=== PATIENT | male | born 1945 | race Caucasian/White ===

== ENCOUNTER → 2018-06-19 12:23 | Outpatient (CLI) | payer MEDICARE, OTHER, SELFPAY ==
[2018-06-19 12:35] LABS: Basophils # 0.1 K/mm3 (0-0.2); Basophils % 0.8 % (0.1-2.0); Eosinophils # 0.2 K/mm3 (0.0-0.4); Eosinophils % 1.8 % (0.1-12.0); Hematocrit 43.4 % (42.0-52.0); Hemoglobin 13.4 g/dL (14.1-18.0); Lymphocytes % 20.7 % (10-50); Mean Corpuscular HGB Conc 30.9 g/dL (31.8-35.4); Mean Corpuscular Volume 80.8 fl (80-94); Mean Platelet Volume 8.2 fl (7.4-10.4); Monocytes # 0.4 K/mm3 (0.1-1.0); Monocytes % 4.3 % (1.7-9.3); Neutrophils # 6.9 K/mm3 (1.8-7.8); Neutrophils % 72.3 % (37.0-80.0); Platelet Count 293 K/mm3 (142-424); Red Blood Count 5.37 M/mm3 (4.60-6.20); Red Cell Distribution Width 15.9 % (11.5-17.5); White Blood Count 9.5 K/mm3 (4.8-10.8)
[2018-06-19 13:41] LABS: Anion Gap 16.9 mEq/L (5-15); Blood Urea Nitrogen 20 mg/dL (7-18); Calcium 8.5 mg/dL (8.5-10.1); Carbon Dioxide 26 mmol/L (21.0-32.0); Chloride 99 mmol/L (98-107); Creatinine,Serum 1.71 mg/dL (0.70-1.30); Estimated Glomerular Filt Rate 40 ml/min (>60); GFR (African American) 48 ML/MIN (>60); Glucose 260 mg/dL (74-106); Potassium 3.9 mmoL/L (3.5-5.1); Sodium 138 mmol/L (136-145)
== END ==
PROVIDERS: Visit Provider Internal Medicine
DX: E11.9 Type 2 diabetes mellitus without complications (principal); E78.5 Hyperlipidemia, unspecified; I11.0 Hypertensive heart disease with heart failure; I25.10 Atherosclerotic heart disease of native coronary artery without angina pectoris; I48.91 Unspecified atrial fibrillation; I65.23 Occlusion and stenosis of bilateral carotid arteries; Z79.01 Long term (current) use of anticoagulants; Z95.810 Presence of automatic (implantable) cardiac defibrillator; I50.30 Unspecified diastolic (congestive) heart failure; Z79.4 Long term (current) use of insulin
CPT/HCPCS: 36415; 80048; 85025

== ENCOUNTER → 2019-11-11 10:18 | Outpatient (CLI) | payer MEDICARE, OTHER, SELFPAY ==
--- NOTE | 2019-11-11 10:19 | CA_ITS ---
APPROVED REPORT EXAM: Comprehensive 2D, Doppler, and color-flow Echocardiogram Ring Packer: Kaylee Rosenthal RVT Ht: 5 ft 7 in Wt: 255lbs BSA: 2.24 BP: 152/83 mmHg Indications: HEART FAILURE,HLD,HTN, STENTS,PACER,A-FIB,SOA,PALPS,DM TDS-PT SIZE 2D Dimensions LVOT 1.98 cm (M/F) 1.5-2.5 M-Mode Dimensions RVDd 2.86 cm (0.9-2.6) LVDd 5.10 cm (3.5-5.7) LVDs 3.71 cm (3.5-5.7) IVSd 1.07 cm (0.6-1.1) PWd 0.85 cm (0.6-1.1) EF (Teich) 52.70% FS 27.30% EDV (Teich) 123.80 mL ESV (Teich) 58.50 mL LV Diastology E/A Ratio 3.17 Mitral Valve MV A Velocity 21.00 (40-130 cm/s) Left Ventricle Technically difficult study because of the patient fact in poor acoustic windows Left atrium is mildly enlarged, left ventricle is normal size, mild concentric left ventricular hypertrophy, visually estimated ejection fraction 50%, there is no obvious regional wall motion abnormality, endocardial surfaces are very poorly visualized, repeat study with Definity contrast is recommended. Diastolic parameters are inconclusive. Right Ventricle Right atrium and right ventricle mildly enlarged with normal contractility, historically patient has a pacemaker, leads are not well visualized. Aortic Valve Aortic valve is thickened and calcified leaflet chordae display good mobility, there is no aortic stenosis or aortic insufficiency. Mitral Valve Mitral valve is minimally thickened, there is mild mitral regurgitation. Tricuspid Valve Tricuspid valve is grossly normal, there is mild tricuspid regurgitation. Pulmonic Valve Pulmonic valve is poorly visualized. Great Vessels Aortic root is normal size. Pericardium No significant pericardial effusion noted. Conclusion 1. Technically very difficult study because of the patient factors and poor acoustic windows, repeat study with Definity contrast is recommended. Normal left ventricular size, mild concentric left ventricular hypertrophy, visually estimated ejection fraction approximately 50% with no obvious regional wall motion abnormality, endocardial sounds are very poorly visualized. Diastolic parameters are inconclusive. 2. Thickened and calcified aortic valve without aortic stenosis aortic insufficiency 3. Mild mitral and tricuspid regurgitation. 4. No significant pericardial effusion noted. Electronically signed by : Jose Cormier, 11/11/2019 22:59:35
== END ==
PROVIDERS: PCP Family Medicine; Visit Provider Urology
DX: I11.0 Hypertensive heart disease with heart failure (principal); I48.91 Unspecified atrial fibrillation; R00.1 Bradycardia, unspecified; R06.02 Shortness of breath
CPT/HCPCS: 36415; 80048; 80061; 80076; 83880; 84439; 84443; 85025; 93306

== ENCOUNTER → 2019-11-11 12:25 | Outpatient (CLI) | payer MEDICARE, OTHER, SELFPAY ==
[2019-11-11 12:59] LABS: Basophils # 0.1 K/mm3 (0-0.2); Basophils % 0.8 % (0.1-2.0); Eosinophils # 0.4 K/mm3 (0.0-0.4); Eosinophils % 5.1 % (0.1-12.0); Hematocrit 40.8 % (42.0-52.0); Hemoglobin 13.4 g/dL (14.1-18.0); Lymphocytes % 23.4 % (10-50); Mean Corpuscular HGB Conc 32.9 g/dL (31.8-35.4); Mean Corpuscular Hemoglobin 27.6 pg (27.0-31.2); Mean Corpuscular Volume 83.7 fl (80-94); Mean Platelet Volume 8.2 fl (7.4-10.4); Monocytes # 0.4 K/mm3 (0.1-1.0); Monocytes % 4.2 % (1.7-9.3); Neutrophils # 5.8 K/mm3 (1.8-7.8); Neutrophils % 66.6 % (37.0-80.0); Platelet Count 270 K/mm3 (142-424); Red Blood Count 4.87 M/mm3 (4.60-6.20); Red Cell Distribution Width 15.9 % (11.5-17.5); White Blood Count 8.6 K/mm3 (4.8-10.8)
[2019-11-11 14:41] LABS: Alanine Aminotransferase 21 U/L (12-78); Albumin Level 4.4 g/dl (3.5-5.0); Alkaline Phosphatase 113 U/L (38-126); Anion Gap 16.2 mEq/L (5-15); Aspartate Amino Transferase 21 U/L (17-59); Bilirubin,Direct 0.1 mg/dl (0.0-0.4); Bilirubin,Indirect 0.4 mg/dL (0.0-0.9); Bilirubin,Total 0.5 mg/dl (0.2-1.3); Bilirubin,Unconjugated 0.4 mg/dL (0.0-1.1); Blood Urea Nitrogen 31 mg/dl (9-20); Calcium 9.4 mg/dl (8.4-10.2); Carbon Dioxide 30 mmol/L (22.0-30.0); Chloride 98 mmol/L (98-107); Chol/HDL Ratio 3.1 (1-3.5); Cholesterol 156 mg/dl (140-200); Estimated Glomerular Filt Rate 46 ml/min (>60); GFR (African American) 56 ML/MIN (>60); Glucose 259 mg/dl (74-100); HDL Cholesterol 50 mg/dl (40-60); Potassium 5.2 mmoL/L (3.5-5.1); Sodium 139 mmol/L (136-145); Total Protein,Serum 7.3 g/dl (6.3-8.2); Triglycerides 155 mg/dl (30-150); VLDL Cholesterol 31 mg/dL (0-40)
[2019-11-11 14:50] LABS: NT Pro Brain Natriuretic Pep. 1320 pg/mL (0-125)
[2019-11-11 14:52] LABS: Direct LDL Cholesterol 106.02 mg/dL (100-129)
[2019-11-11 15:01] LABS: Free T4 (Free Thyroxine) 1.13 ng/dl (0.78-2.19)
[2019-11-11 15:12] LABS: Thyroid Stimulating Hormone 5.46 uIU/mL (0.465-4.68)
== END ==
PROVIDERS: Visit Provider Internal Medicine
DX: E78.5 Hyperlipidemia, unspecified (principal); I11.0 Hypertensive heart disease with heart failure; I25.10 Atherosclerotic heart disease of native coronary artery without angina pectoris; I48.91 Unspecified atrial fibrillation; I65.29 Occlusion and stenosis of unspecified carotid artery; Z79.01 Long term (current) use of anticoagulants; Z95.0 Presence of cardiac pacemaker; Z98.890 Other specified postprocedural states; R06.00 Dyspnea, unspecified
CPT/HCPCS: 36415; 80048; 80061; 80076; 83880; 84439; 84443; 85025

== ENCOUNTER → 2019-11-19 06:51 | Outpatient (CLI) | payer MEDICARE, OTHER, MEDICAID, SELFPAY ==
--- NOTE | 2019-11-19 06:53 | NM_ITS ---
APPROVED REPORT Exam: Nuclear Stress Test Indication: Chest pain, SOB, CAD, Fatigue, Pacemaker, HTN, DM, High cholesterol, Former tobacco use, Family history Patient Location: Outpatient Stress Tech: Camilla Daniel [place] Tech:Melissa Jiang, ARRT, RT (R)(N) Ht: 5 ft 7 in Wt: 250 lbs HR: 81 bpm BP: 157/70 mmHg BSA: 2.22 m2 BMI: 39.1 History: Chest pain, SOB, CAD, Fatigue, Pacemaker, HTN, DM, High cholesterol, Former tobacco use, Family history Procedure: Patient received a 0.4 mg of intravenous Lexiscan, resting heart rate 81 bpm, resting blood pressure 157/70 mmHg, with Lexiscan maximum heart rate achived was 80 bpm which is % of the maximum predicted heart rate and blood pressure was 154/62 mmHg. With Lexiscan, patient denied any complaint of chest pain. Cardiac Stress and Resting SPECT Images: Cardiac Stress and Resting SPECT images were obtained using technetium 99m Myoview 31.9 mCi stress and 10.50 mCi at rest. The ejection fraction is low at 49% with global hypokinesia. No fixed or reversible defects Conclusion: Low ejection fraction with global hypokinesia. No evidence of ischemia or infarction Electronically signed by : Eliazar Patricio MD 11/21/2019 14:44:08
--- NOTE | 2019-11-19 06:53 | CA_ITS ---
APPROVED REPORT Exam: Pharmacologic Technologist: Camilla Sanchez, Ht: 5 ft 7 in Wt: 250 lbs BSA: 2.22 m2 HR: 81 bpm BP: 157/70 mmHg Rhythm: VENTRICULAR PACED RHYTHM Indications: Dyspnea, CAD Medical History Medical History: HTN, Hyperlipidemia, Diabetic ??? Insulin, Smoking Medications: Levothyroxine,,,,, Lovastatin,,,,, Losartan,,,,, Pantoprazole,,,,, Carvedilol,,,,, INSULIN,,,,, Tramadol,,,,, CloPIdogrel,,,,, TorSEMIDE,,,,, DOcusate,,,,, Sitagliptin,,,,, RIvaROXABAN,,,,, Cardiac Risk Factors: HTN, Hyperlipidemia, Diabetes (insulin), FHX of CAD, Smoking Stress Test Details Test: LEXISCAN HR Resting HR: 83 bpm Max Heart Rate (APMHR): 147 bpm Max HR Achieved: 90 bpm Target HR (85% APMHR): 124 bpm % of APMHR: 61 Recovery HR: 80 bpm BP Resting BP: 157.0/70.0 mmHg Max BP: 157.0/70.0 mmHg Recovery BP: 141.0/61.0 mmHg ECG Resting ECG: VENTRICULAR PACED RHYTHM Clinical Exercise duration: 04:07 min Highest Stage Achieved: Stress ECG Conclusion DURING LEXISCAN INFUSION PATIENT HAD MILD MALAISE AND SOA. NO CHEST PAIN. OCCASIONAL TUNTUTULIAK BEAT. NO SIGNIFICANT ST-T CHANGES. NON-DIAGNOSTIC LEXISCAN STRESS. MYOVIEW IMAGES REPORTED SEPARATELY. Electronically signed by : John Randolph, 11/21/2019 11:28:54
--- NOTE | 2019-11-19 07:26 | HMH.ITSHM ---
Current Home Medications as stated by this patient Shai Beltran or agency service representative. []TRAMADOL TORSEMIDE SITAGLIPTIN RIVAROXABAN PANTOPRAZOLE CARVEDILOL NITRO LOVASTATIN LOSARTAN LEVOTHYROXINE INSULIN DOCUSATE CLOPIDOGREL
== END ==
PROVIDERS: PCP Family Medicine; Visit Provider Internal Medicine
DX: E78.5 Hyperlipidemia, unspecified (principal); I11.0 Hypertensive heart disease with heart failure; I25.10 Atherosclerotic heart disease of native coronary artery without angina pectoris; I48.91 Unspecified atrial fibrillation; I65.29 Occlusion and stenosis of unspecified carotid artery; Z79.01 Long term (current) use of anticoagulants; Z95.0 Presence of cardiac pacemaker; Z98.890 Other specified postprocedural states
CPT/HCPCS: 78452; 93017; A9502; J2785

== ENCOUNTER 2019-11-25 08:08 | Day surgery (SDC) | payer MEDICARE, OTHER, MEDICAID, SELFPAY ==
[2019-11-25] VITALS (41 sets, daily range): BP systolic 112–216; BP diastolic 40–105; PULSE 69–86; RESP 15–20; TEMP 36.9–37.3; O2SAT 92–100; BMI 40.2
--- NOTE | 2019-11-25 | IR_ITS ---
APPROVED REPORT Patient Location: Outpatient Supervisor Delivery Department: BALA Keating RT (R) PROCEDURES Left heart catheterization Left ventriculogram Selective coronary angiogram Drug-eluting stent deployment to the distal right coronary artery INDICATION Angina pectoris, Abnormal Myoview, Known coronary artery disease, Informed consent was obtained prior to the procedure. COMPLICATIONS None Estimated Blood Loss: less than 10 ml TECHNIQUE 1% lidocaine used anesthetize the right groin the right femoral artery was accessed via the Salinger technique and a 4 Nepali sheath was placed in the right femoral artery. A JL4 JR4 catheter were used to perform left heart catheterization left ventriculogram and selective coronary angiogram. At the end the diagnostic angiogram therapeutic heparin was administered and the 4 Nepali sheath was exchanged for a 6 Nepali sheath. A JR4 guide catheter was used to intubate the right coronary artery and a Choice PT wire was placed distally. A 2.5 x 38 mm resolute heidi stent was deployed at 20 jose reducing the stenoses to 30 to 40%. A 3 mm x 8 mm noncompliant balloon was deployed multiple times at 24 jose to post dilate to severe in-stent restenotic lesions. After achieving excellent angiographic results the apparatus was removed the patient was transferred to the postop holding her in stable condition for sheath removal and postoperative care. PARAMJIT-3 flow was present before and after the procedure ANGIOGRAPHIC RESULTS The left main artery Normal The left anterior descending artery Has a stent in the proximal LAD which is widely patent free of in-stent restenosis with excellent proximal distal transitioning The circumflex artery Is a codominant vessel and has proximal 10% stenoses with 30 and 40% stenoses in the first obtuse marginal artery which is 2 mm in diameter. The second obtuse marginal artery also has 30 and 40% stenoses which is 2.25 mm in diameter The right coronary artery Codominant vessel and has proximal to mid vessel 10% tapering followed by a 40% mid vessel stenosis within a stent. There are sequential 90% in-stent restenotic lesions in the midportion and distal portion of the stent. The stent transitions nicely into the posterior descending artery which is small to moderate in caliber but patent The RG ventriculogram reveals Mildly reduced at 45% The left ventricular end-diastolic pressure 15 mmHg IMPRESSION Coronary disease as described above Successful stenting of the mid to distal right coronary artery severe stenoses reduced to 10% with one drug-eluting stent Mildly reduced ejection fraction Mildly elevated LVEDP PLAN 1. Dual antiplatelet therapy 2. Cardiac rehabilitation 3. Avoidance of tobacco products 4. Risk factor modification 5. LDL less than 55 Electronically signed by : John Randolph, 11/25/2019 13:29:45
[2019-11-25 09:03] LABS: Basophils # 0.1 K/mm3 (0-0.2); Basophils % 0.7 % (0.1-2.0); Eosinophils # 0.5 K/mm3 (0.0-0.4); Eosinophils % 4.9 % (0.1-12.0); Hematocrit 40.6 % (42.0-52.0); Hemoglobin 13.6 g/dL (14.1-18.0); Lymphocytes # 2.4 K/mm3 (0.7-4.5); Mean Corpuscular HGB Conc 33.4 g/dL (31.8-35.4); Mean Corpuscular Hemoglobin 28.1 pg (27.0-31.2); Mean Corpuscular Volume 84.1 fl (80-94); Mean Platelet Volume 8.2 fl (7.4-10.4); Monocytes # 0.6 K/mm3 (0.1-1.0); Monocytes % 6.1 % (1.7-9.3); Neutrophils # 6.9 K/mm3 (1.8-7.8); Neutrophils % 65.3 % (37.0-80.0); Platelet Count 273 K/mm3 (142-424); Red Blood Count 4.83 M/mm3 (4.60-6.20); Red Cell Distribution Width 16.4 % (11.5-17.5); White Blood Count 10.5 K/mm3 (4.8-10.8)
[2019-11-25 09:06] LABS: Chloride 96 mmol/L (98-107); Sodium 137 mmol/L (136-145)
[2019-11-25 09:07] LABS: Potassium 4.1 mmoL/L (3.5-5.1)
[2019-11-25 09:09] LABS: Blood Urea Nitrogen 28 mg/dl (9-20); Creatinine Clearance Estimated 77 mL/min (50-200); Estimated Glomerular Filt Rate 50 ml/min (>60); GFR (African American) 60 ML/MIN (>60)
[2019-11-25 09:10] LABS: Anion Gap 17.1 mEq/L (5-15); Calcium 9.1 mg/dl (8.4-10.2); Carbon Dioxide 28 mmol/L (22.0-30.0); Glucose 210 mg/dl (74-100)
[2019-11-25 13:52] LABS: CATHL Activated Clotting Time 280 SEC (74-125)
--- NOTE | 2019-11-25 15:15 | SUR.PHASEII ---
PT CARE TAKEN OVER PER BIJU VOSS ON 2ND FLOOR UNTIL D/C.
[2019-11-25 15:21] LABS: POC Glucose,Bedside 156 (70-110)
--- NOTE | 2019-11-25 16:06 | HMH.PHACLD ---
Shai Beltran has received discharge medication counseling on the following medications: Patient currently on carvedilol 25 mg bid, losartan 50 mg daily, lovastatin 40 mg daily, and clopidogrel 75 mg daily. Patient also taking Xarelto 15 mg qpm as well. not wanting to start with aspirin at this time per Lila Ambrose. Patient has hx of bleeds.
--- NOTE | 2019-11-25 16:13 | SUR.PHASEII ---
PER MD NO ASPIRIN AT THIS TIME DUE TO ANTICOAGULATION THERAPY.
[2020-03-16 09:31] LABS: CATHL Activated Clotting Time 190 SEC (74-125)
== END 2019-11-25 18:54 | disposition home or self-care (01) ==
LOC: CATHLAB 08:10 → 2ND 17:25
PROVIDERS: PCP Family Medicine; Visit Provider Internal Medicine
DX: I11.0 Hypertensive heart disease with heart failure (principal); I50.22 Chronic systolic (congestive) heart failure; I48.20 Chronic atrial fibrillation, unspecified; I65.23 Occlusion and stenosis of bilateral carotid arteries; T82.855A Stenosis of coronary artery stent, initial encounter; Z79.01 Long term (current) use of anticoagulants; Z79.4 Long term (current) use of insulin; E78.5 Hyperlipidemia, unspecified
CPT/HCPCS: 80048; 82962; 85025; 85347; 92928; 93458; 99152; 99153; C1725; C1769; C1876; C9600; J1644; J2720; Q9967

== ENCOUNTER 2020-09-07 10:25 | Day surgery (SDC) | payer MEDICARE, OTHER, MEDICAID, SELFPAY ==
--- NOTE | 2020-09-07 | IR_ITS ---
APPROVED REPORT Patient Location: Outpatient Technician Terminal And Repeater: BALA Keating RT (R) PROCEDURES Pocket Revision Removal of old Cardiac Resynchonization therapy Pacemaker Implant of Permanent Cardiac Resynchonization therapy Pacemaker INDICATION End of Battery Life Informed consent was obtained prior to the procedure. COMPLICATIONS None Estimated Blood Loss: Less than 10 mls TECHNIQUE 1% lidocaine with epinephrine used to anesthetize the left anterior aspect of the chest. Scalpel was used to make the initial cutaneous incision and then used to dissect down to the existing pacemaker generator. The PHONE REPRESENTATIVE-P generator was removed from the existing pocket. Digital manipulation was required along with intermittent usage of scalpel in order to revise the pocket. The leads were removed from the old generator. The new PHONE REPRESENTATIVE-P generator was screwed to the existing leads and secured into place. Electronic interrogation proved acceptable thresholds and voltage within the lead. Antibiotics were used to flush the pocket and the pacemaker was secured using 3-0 silk into the newly revised pocket. Monocryl was used to close the subcutaneous tissue and then fe were placed on the cutaneous area in order to approximate the incision. Patient was transferred to the postop holding area in stable condition. INTERROGATION Explanted Generator Model number: Edutortronic [id number] Explanted Generator Serial number: [id number] Implanted Generator Model number: VISIONIST PHONE REPRESENTATIVE-P, U225 Implanted Generator Serial number: [id number] Atrial lead model number: Capsurefix, 5086MRI Atrial lead serial number: [id number] P-wave: 0.7mV Impedence: 552 ohms Threshold: Afib Left Ventricular lead model number: Attain Ability Plus, 4296 Left Ventricular lead serial number: [id number] Impedence: 892 ohms Threshold: 2.4V@1.0ms Right Ventricular lead model number: Capsurefix, 5086MRI Right Ventricular lead serial number: [id number] Impedence: 608 ohms Threshold: 0.4V@0.4ms Pacing Parameters: Mode: DDDR Base/Max Track: 60/130ppm No diaphragmatic stimulation at 10 volts. IMPRESSION Successful Pocket Revision Successful Removal of old Cardiac Resynchonization therapy Pacemaker Successful Implant of Permanent Cardiac Resynchonization therapy Pacemaker PLAN 1. Post op wound care, follow up office visit Electronically signed by : John Randolph, 09/09/2020 10:47:15
[2020-09-07 10:30] VITALS: BMI 39.4
[2020-09-07 11:02] LABS: Basophils # 0.1 K/mm3 (0-0.2); Basophils % 0.9 % (0.1-2.0); Eosinophils # 0.5 K/mm3 (0.0-0.4); Eosinophils % 4.5 % (0.1-12.0); Hematocrit 46.4 % (42.0-52.0); Hemoglobin 14.7 g/dL (14.1-18.0); Lymphocytes # 2.1 K/mm3 (0.7-4.5); Lymphocytes % 20.1 % (10-50); Mean Corpuscular HGB Conc 31.6 g/dL (31.8-35.4); Mean Corpuscular Volume 82.3 fl (80-94); Monocytes # 0.6 K/mm3 (0.1-1.0); Monocytes % 5.8 % (1.7-9.3); Neutrophils # 7.1 K/mm3 (1.8-7.8); Neutrophils % 68.8 % (37.0-80.0); Platelet Count 260 K/mm3 (142-424); Red Blood Count 5.63 M/mm3 (4.60-6.20); Red Cell Distribution Width 15.9 % (11.5-17.5); White Blood Count 10.4 K/mm3 (4.8-10.8)
[2020-09-07 11:17] LABS: Chloride 104 mmol/L (98-107); Potassium 4.4 mmoL/L (3.5-5.1); Sodium 137 mmol/L (136-145)
[2020-09-07 11:20] LABS: Blood Urea Nitrogen 35 mg/dl (9-20); Creatinine Clearance Estimated 62 mL/min (50-200); Estimated Glomerular Filt Rate 40 ml/min (>60); GFR (African American) 48 ML/MIN (>60)
[2020-09-07 11:21] LABS: Anion Gap 13.4 mEq/L (5-15); Calcium 8.8 mg/dl (8.4-10.2); Carbon Dioxide 24 mmol/L (22.0-30.0); Glucose 272 mg/dl (74-100)
[2020-09-07 11:34] LABS: Coronavirus 19 IgG Antibody Positive (Negative); Coronavirus 19 IgM Antibody Negative (Negative)
--- NOTE | 2020-09-07 12:25 | HMH.ANESCL ---
[facility] Anesthesia Checklist - Patient Identification Patient Identification: Arm Band - Structural Data Admitted From: Home Planned Operative Procedure/s: Battery change for Bi-V Consent for Planned Operative Procedure(s) Verified: Yes - NPO Status Verified Time NPO: 00:00 - Airway Assessment Dentition: Edentulous - Neurological Assessment Level of Consciousness: Awake, Alert Hx Seizures: No Numbness or tingling in extremities: Yes (Lower extremities) - Anesthesia Plan Anesthesia Risk discussed: Yes Anesthesia Plan: Verified ASA Class: III Anesthesia Type: Local & MAC [facility] History I have reviewed the patient's past medical history: Yes Medical History: Reports:: Atrial Fibrillation, Carotid Stenosis, Coronary Artery Disease, Depression, Diabetes Mellitus Type 2, Hyperlipidemia, Hypertension, Internal Pacemaker, Peripheral Artery Disease Denies:: Seizures *Have you ever received a pneumonia vaccine?: Yes *Have you received a flu vaccine this season?: Yes Other Medical History: Reports: Arthritis, Hypothyroidism Anesthesia experience/problems:: None Other Surgeries: Yes: Angioplasty (06/27/2016-1 stent, 05/2014, 2011- stents), Cardiac Catheterization, Coronary Stent, Pacemaker Amputation: No Fractures: No - *Social History Smoking Status: Unknown if ever smoked Tobacco Type: cigarettes Alcohol Intake: never Substance Use Type: denies use *Occupational Status:: retired Household Members: spouse *Travel in the last 8 weeks: Inside the [place] - Psychiatric History Pschychiatric History:: Reports:: Depression Family Hx:: Unable to obtain
[2020-09-07 14:16] VITALS: BP 128/65; PULSE 70; RESP 20; O2SAT 95
[2020-09-07 14:17] VITALS: BP 128/65; PULSE 70; RESP 20; O2SAT 96
--- NOTE | 2020-09-07 14:18 | HMH.ANESI ---
[facility] Anesthesia Record Part I Intake, IV Amount: 400 Estimated blood loss (mL): 5 Urine output (mL): 0 Blood Pressure: 128/65 SaO2: 93 Pulse Rate: 70 Respiratory Rate: 14 Temperature: 97.3 F Patient is:: Drowsy Stable to PACU at:: 14:12
[2020-09-07 14:19] VITALS: BP 128/65; PULSE 70; RESP 14; TEMP 36.3; O2SAT 93
[2020-09-07 14:45] VITALS: BP 135/63; PULSE 70; RESP 20; O2SAT 95
[2020-09-07 15:06] VITALS: BP 142/79; PULSE 70; RESP 20; O2SAT 94
--- NOTE | 2020-09-08 07:45 | P.PN_ITS ---
[facility] Anesthesia Record Part II Discharge Time: 15:06 Destination: Outpatient Procedures PACU nurse assessment reviewed?: Yes Patient Condition:: Good Anesthesia Complications:: None Swallowing reflex intact?: Yes Cyanosis?: No Blood Pressure: 142/79 Pulse Rate: 70 Temperature: 97.3 F Mental Status: Alert & Oriented Pain level:: 0 Nausea and/or vomitting:: None Intake, IV Amount: 400
[2020-09-08 07:46] VITALS: BP 142/79; PULSE 70; TEMP 36.3
== END 2020-09-07 15:23 | disposition home or self-care (01) ==
LOC: CATHLAB 10:27
PROVIDERS: PCP Family Medicine; Visit Provider Internal Medicine
DX: Z45.010 Encounter for checking and testing of cardiac pacemaker pulse generator [battery] (principal); E11.9 Type 2 diabetes mellitus without complications; Z79.4 Long term (current) use of insulin; I48.20 Chronic atrial fibrillation, unspecified; I11.0 Hypertensive heart disease with heart failure; I50.22 Chronic systolic (congestive) heart failure
CPT/HCPCS: 33228; 80048; 85025; 86328; C2621

== ENCOUNTER → 2021-02-28 11:05 | Outpatient (CLI) | payer MEDICARE, OTHER, MEDICAID, SELFPAY ==
--- NOTE | 2021-02-28 11:08 | CA_ITS ---
APPROVED REPORT Faith Healer: Kaylee Rosenthal RVT Laterality: Bilateral Study Quality: Good Indications: Carotid stenosis Risk Factors Hypertension: Hyperlipidemia Surgery/Intervention Endarterectomy: left Doppler Spectral Velocity Analysis ECA (R) 256.20/26.90 cm/s ECA (L) 111.70/9.00 cm/s dICA (R) 152.90/26.70 cm/s dICA (L) 57.10/14.80 cm/s Mayra (R) 149.70/23.50 cm/s Mayra (L) 55.90/16.70 cm/s pICA (R) 139.00/26.70 cm/s pICA (L) 37.90/9.00 cm/s dCCA (R) 103.70/18.20 cm/s dCCA (L) 51.40/10.30 cm/s pCCA (R) 57.70/12.80 cm/s pCCA (L) 46.20/9.60 cm/s Vert (R) 52.00/11.60 cm/s Vert (L) 88.00/16.10 cm/s ICA/CCA 1.47 ICA/CCA 1.11 Findings Study sugggests 50-69% stenosis of the right internal cartoid artery. Study suggests no evidence of stenosis of the left internal cartoid artery. Antegrade flow seen bilateral vertebral arteries. 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 Study suggests no evidence of stenosis of the left internal cartoid artery. Antegrade flow seen bilateral vertebral arteries. Electronically signed by : Eliazar Patricio MD 02/28/2021 15:39:50
== END ==
PROVIDERS: Visit Provider Nurse Practitioner Family
DX: E78.5 Hyperlipidemia, unspecified (principal); I11.0 Hypertensive heart disease with heart failure; I25.10 Atherosclerotic heart disease of native coronary artery without angina pectoris; I48.91 Unspecified atrial fibrillation; Z79.01 Long term (current) use of anticoagulants; Z95.0 Presence of cardiac pacemaker; Z98.890 Other specified postprocedural states; I65.23 Occlusion and stenosis of bilateral carotid arteries
CPT/HCPCS: 93880